=== PATIENT | male | born 1965 | race Hispanic/Latino ===

== ENCOUNTER 2017-05-04 10:40 | Inpatient (IN) | payer SELFPAY ==
[~2017-05-04] VITALS: Ht 165.1 cm; Wt 66.6 kg
[2017-05-04 11:23] LABS: CREATININE 0.7 mg/dL (0.5-1.5); POTASSIUM 3.8 mmol/L (3.5-5.1)
[2017-05-04 11:25] LABS: BASOPHILS % (AUTO) 0.7 % (0.0-5.0); EOSINOPHILS % (AUTO) 0.1 % (0.0-8.0); HEMATOCRIT 39.6 % (42-54); LYMPHOCYTES % (AUTO) 4.1 % (21.0-51.0); MEAN CORPUSCULAR HEMOGLOBIN 31.1 pg (27.0-33.0); MEAN CORPUSCULAR HGB CONC 34.6 g/dL (32.0-36.0); MEAN CORPUSCULAR VOLUME 89.9 fL (79-99); MONOCYTES % (AUTO) 4.2 % (3.0-13.0); NEUTROPHILS % (AUTO) 90.9 % (40.0-77.0); PLATELET COUNT (AUTO) 221 K/uL (130-400); RED CELL DISTRIBUTION WIDTH 14.3 % (11.0-15.5); WHITE BLOOD COUNT (AUTO) 6.2 K/uL (4.8-10.8)
[2017-05-04 11:27] LABS: ALBUMIN 3.9 g/dL (3.5-5.0); BILIRUBIN,TOTAL 0.5 mg/dL (0.2-1.0); TOTAL PROTEIN, SERUM 8.1 g/dL (6.0-8.3)
[2017-05-04] MEDS ORDERED: CHLORDIAZEPOXIDE HCL 25 MG CAP ONE ×2 (12:12→18:55)
[2017-05-04] MEDS ORDERED: DIAZEPAM 5 MG TABLET ONE (12:12)
[2017-05-04] MEDS ORDERED: DEXTROSE 10%-WATER 1,000 ML IV ONE (13:29)
[2017-05-04] MEDS ORDERED: DEXTROSE 50%-WATER 50 ML DISP.SYRIN IV ONE ×2 (13:54→15:34)
[2017-05-04] MEDS: FOLIC ACID 1 MG TABLET PO SCH (19:00)
[2017-05-05] MEDS ORDERED: CHLORDIAZEPOXIDE HCL 25 MG CAP ONE (00:50)
[2017-05-05] MEDS ORDERED: DEXTROSE 10%-WATER 1,000 ML IV ONE (00:52)
[2017-05-05] MEDS: CHLORDIAZEPOXIDE HCL 25 MG CAP PO SCH ×4 (01:00→19:00)
[2017-05-05 02:13] VITALS: BP 107/68
[2017-05-05 04:26] VITALS: BP 124/83
[2017-05-05 08:00] VITALS: BP 120/91
[2017-05-05] MEDS ORDERED: FLU VACC QS2017-18 36MOS UP/PF 60 MCG/0.5 ML ML IM NR (08:15)
[2017-05-05 12:00] VITALS: BP 118/88
[2017-05-05] MEDS: FOLIC ACID 1 MG TABLET PO SCH (13:09)
[2017-05-05 16:00] VITALS: BP 140/76
[2017-05-05 19:20] VITALS: BP 141/75
[2017-05-05] MEDS ORDERED: CHLORDIAZEPOXIDE HCL 25 MG CAP PO SCH (21:50)
[2017-05-05] MEDS: THIAMINE HCL 100 MG TABLET PO SCH (22:38)
[2017-05-06 00:20] VITALS: BP_SYST 134; BP_SYST 145; BP_DIAS 82; BP_DIAS 84
[2017-05-06] MEDS: CHLORDIAZEPOXIDE HCL 25 MG CAP PO SCH ×4 (01:15→19:52)
[2017-05-06 03:20] VITALS: BP 118/88
[2017-05-06 05:53] LABS: HEMATOCRIT 42.7 % (42-54); MEAN CORPUSCULAR HEMOGLOBIN 30.7 pg (27.0-33.0); MEAN CORPUSCULAR HGB CONC 34.4 g/dL (32.0-36.0); MEAN CORPUSCULAR VOLUME 89.3 fL (79-99); NUCLEATED RED BLOOD CELLS 0.1 % (0.0-0.19); PLATELET COUNT (AUTO) 218 K/uL (130-400); RED BLOOD CELL COUNT(AUTO) 4.79 MIL/uL (4.50-6.20); RED CELL DISTRIBUTION WIDTH 14.3 % (11.0-15.5); WHITE BLOOD COUNT (AUTO) 5.4 K/uL (4.8-10.8)
[2017-05-06 06:07] LABS: POTASSIUM 3.8 mmol/L (3.5-5.1)
[2017-05-06 06:11] LABS: BAND NEUTROPHILS % (MANUAL) 1 % (0-2); EOSINOPHILS % (MANUAL) 2 % (1-6); LYMPHOCYTES % (MANUAL) 30 % (22-44); MONOCYTES % (MANUAL) 7 % (2-9); SEGMENTED NEUTROPHILS % 60 % (40-70)
[2017-05-06 06:12] LABS: MAN.DIFF COMMENT-IMPRESSION MANUAL DIFFERENTIAL; PLATELET MORPHOLOGY COMMENT ADEQUATE
[2017-05-06 07:49] VITALS: BP 132/84
[2017-05-06] MEDS: THIAMINE HCL 100 MG TABLET PO SCH (08:08)
[2017-05-06] MEDS: FOLIC ACID 1 MG TABLET PO SCH (08:08)
[2017-05-06 12:00] VITALS: BP 132/96
[2017-05-06 16:00] VITALS: BP 125/89
[2017-05-06 19:10] VITALS: BP 113/87
[2017-05-07 03:25] VITALS: BP 140/77
[2017-05-07 04:05] LABS: HEMATOCRIT 42.1 % (42-54); MEAN CORPUSCULAR HEMOGLOBIN 30.8 pg (27.0-33.0); MEAN CORPUSCULAR HGB CONC 34.1 g/dL (32.0-36.0); MEAN CORPUSCULAR VOLUME 90.3 fL (79-99); PLATELET COUNT (AUTO) 226 K/uL (130-400); RED BLOOD CELL COUNT(AUTO) 4.67 MIL/uL (4.50-6.20); RED CELL DISTRIBUTION WIDTH 14.5 % (11.0-15.5); WHITE BLOOD COUNT (AUTO) 6.2 K/uL (4.8-10.8)
[2017-05-07 04:21] LABS: CREATININE 0.9 mg/dL (0.5-1.5); POTASSIUM 4.1 mmol/L (3.5-5.1)
[2017-05-07 04:23] LABS: BAND NEUTROPHILS % (MANUAL) 12 % (0-2); BASOPHILS % (MANUAL) 1 % (0-2); EOSINOPHILS % (MANUAL) 2 % (1-6); LYMPHOCYTES % (MANUAL) 26 % (22-44); MONOCYTES % (MANUAL) 3 % (2-9); SEGMENTED NEUTROPHILS % 56 % (40-70)
[2017-05-07 04:24] LABS: MAN.DIFF COMMENT-IMPRESSION MANUAL DIFFERENTIAL; PLATELET MORPHOLOGY COMMENT ADEQUATE
[2017-05-07] MEDS ORDERED: CHLORDIAZEPOXIDE HCL 25 MG CAP PO SCH (07:00)
[2017-05-07 08:00] VITALS: BP 130/99
[2017-05-08] MEDS ORDERED: CHLORDIAZEPOXIDE HCL 25 MG CAP PO SCH (09:00)
[2017-05-09] MEDS ORDERED: CHLORDIAZEPOXIDE HCL 25 MG CAP PO SCH (09:00)
== END 2017-05-07 12:27 | disposition home or self-care (01) | DRG 897 ==
LOC: EDH 10:40 → EDHIP 10:41 → 3AH 23:59
PROVIDERS: ADMIT Family Medicine; ATTEND Family Medicine
PROC: 3E0234Z Introduction of Serum, Toxoid and Vaccine into Muscle, Percutaneous Approach (ICD-10-PCS; principal; 2017-05-06)
DX: F10.239 Alcohol dependence with withdrawal, unspecified (principal); E16.2 Hypoglycemia, unspecified; Z72.0 Tobacco use; F41.9 Anxiety disorder, unspecified; Z83.3 Family history of diabetes mellitus; Z23 Encounter for immunization
CPT/HCPCS: 36415; 80048; 80053; 82948; 85025; J3490; J7070